=== PATIENT | male | born 1995 | race Two or more races ===

== ENCOUNTER 2016-10-18 22:29 | Emergency (ER) | payer OTHER ==
[2016-10-19] MEDS ORDERED: IBUPROFEN800 M1 PO (01:20)
== END 2016-10-19 01:25 ==
LOC: EDMED 22:29
DX: S86.811A Strain of other muscle(s) and tendon(s) at lower leg level, right leg, initial encounter (principal); V23.9XXA Unspecified motorcycle rider injured in collision with car, pick-up truck or van in traffic accident, initial encounter; Y92.410 Unspecified street and highway as the place of occurrence of the external cause